=== PATIENT | female | born 1980 | race Caucasian/White ===

== ENCOUNTER → 2017-11-21 10:16 | Outpatient (CLI) | payer OTHER, SELFPAY ==
[2017-11-22 11:48] LABS: Strep Grp B PCR NEG for Grp B Strep
== END ==
PROVIDERS: Visit Provider Specialist
DX: Z34.82 Encounter for supervision of other normal pregnancy, second trimester (principal); Z3A.36 36 weeks gestation of pregnancy
CPT/HCPCS: 87653

== ENCOUNTER 2017-11-30 13:28 | Outpatient (CLI) | payer OTHER, SELFPAY ==
[2017-11-30 14:21] LABS: Appearance Urine UA CLEAR; Bilirubin Urine UA NEGATIVE (NEGATIVE); Color Urine UA YELLOW; Glucose Urine UA NEGATIVE (Normal); Ketones Urine UA NEGATIVE (NEGATIVE); Leukocyte Esterase Urine UA NEGATIVE (NEGATIVE); Nitrite Urine UA Negative (Negative); Occult Blood Urine UA NEGATIVE (Negative); Protein Urine UA NEGATIVE (Negative); Specific Gravity Urine UA <=1.005 (1.000-1.035); Urobilinogen Urine UA 0.2 E.U./dL (0.2); pH Urine UA 5.5 (4.5-8.0)
--- NOTE | 2017-11-30 17:56 | P.TNLD_ITS ---
Visit Information Visit Information Date of evaluation: 11/30/17 Reason for Evaluation: Yes non-stress test Vital Signs Vital Signs: Blood pressure 119/61, pulse of 56, Review of Systems Review of Systems Patient came in complaining of headache, not feeling well, concerned about decreased movement. Patient denies contractions or rupture membranes. Objective Labs Labs: Laboratory Results - last 24 hr 11/30/17 14:00 Urine Color Yellow Urine Appearance Clear Urine pH 5.5 Ur Specific [place] <=1.005 Urine Protein Negative Urine Glucose (UA) Negative Urine Ketones Negative Urine Occult Blood Negative Urine Nitrate Negative Urine Bilirubin Negative Urine Urobilinogen 0.2 Ur Leukocyte Esterase Negative Evaluation Evaluation Baseline heart rate: 120 Variability: Moderate (11-25) monitor accelerations: Present monitor decelerations: Absent Laboratory results: Laboratory Tests 11/30/17 14:00 Urine Color Yellow Urine Appearance Clear Urine pH 5.5 Ur Specific [place] <=1.005 Urine Protein Negative Urine Glucose (UA) Negative Urine Ketones Negative Urine Occult Blood Negative Urine Nitrate Negative Urine Bilirubin Negative Urine Urobilinogen 0.2 Ur Leukocyte Esterase Negative Diagnosis, Plan/Disposition Final Diagnosis (1) 38 weeks gestation of : Current Visit: No Status: Acute (2) Decreased movement affecting management of in third trimester: Current Visit: No Status: Acute Plan/Disposition Plan: Reactive nonstress test. Patient was reassured. Follow up at her normal scheduled OB appointment.
== END 2017-11-30 14:39 | disposition home or self-care (01) ==
LOC: OB 12-03 10:07
PROVIDERS: Visit Provider Specialist
DX: O36.8130 Decreased fetal movements, third trimester, not applicable or unspecified (principal); Z3A.38 38 weeks gestation of pregnancy
CPT/HCPCS: 59025; 81003; G0378; G0379

== ENCOUNTER 2017-12-02 10:10 | Inpatient (IN) | payer OTHER, SELFPAY ==
[2017-12-02 10:50] VITALS: BP 128/73
--- NOTE | 2017-12-02 11:16 | PM.OBHP.1 ---
OB HPI History of Present Illness Chief complaint: observation Narrative: Jovanna Lance is a 37 year old female G2 para 1 with an estimated due date of 12/16/2017 consistent with early ultrasound and LMP. She is now 38 weeks. Patient comes in complaining of leaking him fluid and contractions. Symptoms started on Sunday where she began to not feel very well. She had a headache and a little bit of nausea. She was seen and evaluated in the Center had a reactive strip was not malini blood pressures and vitals were all stable. She says she has been resting over the weekend this morning she got up and she was using the bathroom and then began to have leakage of clear fluid. This continued throughout the morning so she presented at the labor and delivery floor. She then began to have progressive contractions. On arrival she was found to have a reactive strip category 1 tracing. Malini intermittently. Her AmniSure test was positive for rupture of membranes. has been uncomplicated. Her problems include HSV 2 positive and previous due to on reassuring heart tones. Current care initiated at 9 weeks. She has had routine follow-up without any complications. She had a normal 20 week ultrasound. She had no at initial screening tests. Her labs are as follows. Blood type A positive antibody screen negative hematocrit 41.5 hemoglobin 41.1 platelet count 183 VDRL nonreactive urine culture negative hepatitis-B surface antigen negative HIV negative rubella nonimmune hep C negative. Diabetes screen 91 GBS is negative. Past medical history patient denies significant past medical history of diabetes heart disease Asthma bleeding or blood clotting problems. Past surgical history prior and knee surgery. Social history she is not a smoker or drinker during she drink intermittently before . She lives at home with her partner. Family history of diabetes and hypertension. Gynecological history no previous history of infections. Abnormal Pap smear previously without any intervention. Meds Allergies Allergy/AdvReac Type Severity Reaction Status Date / Time No Known Drug Allergies Allergy Verified 12/02/17 11:59 Exam Vital Signs (past 8 hours): . General: Alert no apparent distress. Affect is appropriate. Malini it is uncomfortable. HEENT: Neck is supple without lymphadenopathy pupils equal round and reactive. Cardio: S1-S2 regular rate and rhythm. Respiratory: Lungs clear to auscultation. Abdomen: Gravid. Extremities: Normal deep tendon reflexes trace edema. [place]: Malini every 5 min 60 sec mild heart tones: heart tones 135 category 1 Objective Labs Result Diagrams: 12/02/17 11:20 Assessment and Plan Plan: Plan: 37-year-old female who is a G2 para 1 at 38 weeks gestational age with previous history of comes in with spontaneous rupture of membrane with clear fluid and malini intermittently. Patient was scheduled here in 1 week for a . We reviewed and discussed current care plan which would be to proceed with currently because of rupture of membranes her GBS status is negative. 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 Reviewed and discussed operation. Have verbal and written informed consent was obtained after discussion of the risks of the including bleeding and infection injury to bladder or bowel during the operation. We will go ahead and proceed with starting IV fluid CBC type and screen antibiotics will be placed for on-call. Anesthesia will be contacted and as well as the OR and will proceed with . All patient's questions were answered.
[2017-12-02 11:37] LABS: Add Manual Diff / Slide Review NO; Basophils Percent Auto 0.2 % (0-2); Eosinophils Percent Auto 0.3 % (2-4); Hematocrit 36.9 % (36-46); Hemoglobin 12.8 g/dL (12.0-16.0); Lymphocytes Percent Auto 18.1 % (25-40); Mean Corpuscular HGB Conc 34.8 % (30-36); Mean Corpuscular Hemoglobin 32.2 PG (26-34); Mean Corpuscular Volume 92.7 fL (80-100); Neutrophils Absolute Auto 6600 /uL (3000-5900); Neutrophils Percent Auto 75.4 % (50-75); Platelet Count 134 X10^3/uL (150-400); Red Blood Cell Count 3.98 X10^6/uL (4.0-5.2); White Blood Cell Count 8.8 X10^3/uL (4.5-11.0)
[2017-12-02] MEDS: LACTATED RINGERS 1,000 ML 100 ML IV ×3 (11:55→21:00)
[2017-12-02] MEDS: CEFOTETAN 2 GM/50 ML PIGGYBACK IV (12:05)
--- NOTE | 2017-12-02 12:27 | SUR.OPER ---
Supine on Padded OR bed, head on pillow, safety belt at thigh, arms secured on padded arm boards at <90 degrees abduction. Bump under right buttock. Legs uncrossed with pillow under knees, gel pad to heels, tape over blanket to lower legs.
--- NOTE | 2017-12-02 12:50 | PM.OP.1 ---
Operative Notes Procedure in detail: Procedure: Lower segment transverse section Consent: Verbal and written informed consent were obtained from the patient placed on the chart. Indications: 37-year-old G2 para 138 weeks gestational age with spontaneous rupture of membrane with previous here for repeat Findings: Normal uterus normal ovaries Normal male infant Anesthesia: Spinal Surgeon: Dr. Keith Tabares Superintendent Renting Managing: Dr. Puneet Campuzano Estimated blood loss: 500 mL Drains: Valladares to gravity. IV fluids: 1800 cc LR Description of procedure: The patient was brought to the operating room after her spinal epidural, preparation, and Valladares had been performed. The abdomen was prepped and draped in tested for for analgesia. When it was found to be adequate, a lower abdominal Pfannenstiel incision was made with first with a knife and cared down to the fascia with a second knife. The fascia was incised in the midline and extended laterally with a knife. Bleeding points were clamped with hemostats and Bovie coagulated. The rectus muscles were by blunt dissection. The rectus muscles were divided in the midline and the peritoneum was grasped with hemostats and carefully entered with Kwok scissors. The incision was extended bilaterally. The bladder blade was then placed. The vesicoperitoneum was grasped with smooth pickups, entered with Metzenbaum scissors, and extended laterally. The bladder flap was created by gently blunt dissection and placed behind the bladder blade. The lower uterine segment was noted to be very thin was carefully incised with the scalpel and extended laterally with the fingers. A live infant was found to be in the vertex. The head was then easily elevated with the hand. The baby was then suctioned and cried immediately, and was handed to the waiting attendant. The placenta was delivered manually. The uterus was explored with a wet lap sponge and found to be clear membranes. The first layer of the uterine closure was with running locking #1 chromic catgut suture. The second layer with an imbricating #1 chromic catgut suture. Hemostasis was carefully checked and found to be satisfactory. The bladder flap was closed with a running 2-0 chromic catgut suture. The fallopian tubes and ovaries were inspected and to be found normal bilaterally. After sponge and needle counts were found to be correct the peritoneum was closed with 2-0 chromic catgut suture. Rectus muscles were approximated in the lower midline. The fascia was closed with a 2 running 0 Vicryl from lateral to midline. The subcutaneous tissue was approximated with interrupted 2.0 plain gut. Bleeding points were Bovie and coagulated. The subcutaneous tissue was approximated with 2.0 plain gut suture. The skin was closed with 1-0 running subcuticular stitch. Urinary output was adequate and normal patient left to the recovery room in good condition.
[2017-12-02 12:56] VITALS: BP 99/56; PULSE 56; RESP 12; TEMP 35.9; O2SAT 100
[2017-12-02 13:01] VITALS: BP 102/53; PULSE 57; RESP 13; O2SAT 100
[2017-12-02 13:06] VITALS: BP 104/56; PULSE 57; RESP 13; O2SAT 100
[2017-12-02 13:11] VITALS: BP 100/53; PULSE 52; TEMP 35.7
--- NOTE | 2017-12-02 13:15 | SUR.PHASEI ---
Report called to mike Zamudio
--- NOTE | 2017-12-02 13:16 | SUR.OPER ---
FHR 152 TOB at 12:21 p.m. alive male Cord bloods x 2 and placenta are given to OB nurse
--- NOTE | 2017-12-02 13:49 | SUR.PHASEI ---
Epidural orders discontinued by transfer routine. Lizz notified. Dr. Campuzano notified, ok to restart anesthesia's epidural orders per Dr. Campuzano. Marsha in pharmacy notified.
--- NOTE | 2017-12-02 13:54 | SUR.PHASEI ---
Verified Dr. Wetzel ordered Duramorph order set.
[2017-12-02] MEDS: LACTATED RINGERS 1,000 ML 125 ML IV (14:15)
[2017-12-02] MEDS: ONDANSETRON 4 MG/2 ML INJ IV (15:41)
[2017-12-02] MEDS: KETOROLAC 30 MG/ML VIAL IV (18:31)
[2017-12-03] MEDS: KETOROLAC 30 MG/ML VIAL IV ×2 (00:26→06:21)
[2017-12-03] MEDS: LACTATED RINGERS 1,000 ML 125 ML IV (04:38)
--- NOTE | 2017-12-03 08:14 | P.PN_ITS ---
Subjective Date Patient Seen: 12/03/17 Time Patient Seen: 08:11 Interval history: Doing well today. Had some nausea yesterday. Has not really been out of bed yet. Working on breast-feeding. Diets been okay. Valladares catheter in SCDs is still on. Pain is well controlled. Is vaginal bleeding has been expected. No significant incisional bleeding. She is afebrile and vital signs are stable. Exam Vital Signs (past 8 hours): Pulse Oximetry 100 Oxygen Delivery Method Room Air Narrative Exam Narrative: General: Alert no apparent distress. Affect is appropriate. [place] it is uncomfortable. HEENT: Neck is supple without lymphadenopathy pupils equal round and reactive. Cardio: S1-S2 regular rate and rhythm. Respiratory: Lungs clear to auscultation. Abdomen: Uterus firm. Incision clean dry and intact. Extremities: Normal deep tendon reflexes trace edema. Objective Labs Result Diagrams: 12/02/17 11:20 Labs: Laboratory Results - last 24 hr 12/02/17 12/02/17 11:20 11:20 WBC 8.8 RBC 3.98 L Hgb 12.8 Hct 36.9 MCV 92.7 MCH 32.2 MCHC 34.8 RDW 13.0 Plt Count 134 L Neut % (Auto) 75.4 H Lymph % (Auto) 18.1 L [place] % (Auto) 6.0 Eos % (Auto) 0.3 L Baso % (Auto) 0.2 Neut # (Auto) 6600 H Blood Type A Positive Antibody Screen Negative Assessment & Plan Plan: Plan: Doing well last night. Nausea is now improved. Starting on breakfast. If she tolerates that well will remove her IV SCDs and Valladares catheter. Transition her over to oral pain medication a large a ambulate back and forth to the bathroom.
[2017-12-03] MEDS: OXYCODONE/ACETAMINOPHEN 5/325 TABLET 2 TAB PO ×4 (10:25→22:15)
[2017-12-03] MEDS: IBUPROFEN 600 MG TABLET PO ×2 (12:45→18:07)
[2017-12-03] MEDS: DOCUSATE 250 MG CAPSULE PO (12:46)
[2017-12-04] MEDS: OXYCODONE/ACETAMINOPHEN 5/325 TABLET 2 TAB PO ×2 (05:27→09:07)
[2017-12-04] MEDS: IBUPROFEN 600 MG TABLET PO ×3 (05:28→17:43)
--- NOTE | 2017-12-04 07:52 | PM.DS.1 ---
History of Present Illness Chief complaint: observation Discharge Providers Date of admission: 12/02/17 10:51 Consults: 12/02/17 13:18 Consult to Email Campaign Manager Routine Comment: Discharge provider: Keith Tabares MD Summary Discharge Diagnosis: 37-year-old G2 now para 2 status post due to rupture membranes previous history of . Estimated due date 38 weeks. Routine care Hospital Course: Patient was admitted to labor and delivery floor with spontaneous rupture of membranes at 38 weeks. Patient previously has had a . And anticipated repeat section. Patient had an uncomplicated delivery of a healthy male infant. Postoperatively day 1. Patient was doing well pain was well controlled breast-feeding was going would help Valladares catheter IV fluids SCDs removed. Postoperative day 2. Patient was tolerating diet and ambulated pain was well controlled with oral medication hemoglobin adequate with stable breast-feeding was well and patient desiring to go home Exam Vital Signs (past 8 hours): Pulse Oximetry 100 Oxygen Delivery Method Room Air Narrative Exam Narrative: General: Alert no apparent distress. Affect is appropriate. [place] it is uncomfortable. HEENT: Neck is supple without lymphadenopathy pupils equal round and reactive. Cardio: S1-S2 regular rate and rhythm. Respiratory: Lungs clear to auscultation. Abdomen: Uterus firm. Incision clean dry and intact. Extremities: Normal deep tendon reflexes trace edema. Objective Labs Result Diagrams: 12/02/17 11:20 Discharge Plan Discharge Plan Patient Disposition: Home, Self-Care Discharge Med Rec/Prescriptions Prescriptions: New oxycodone-acetaminophen 5-325 mg Tablet 2 tab PO TPN/PPN PRN (Reason: Pain, Severe) Qty: 30 RF: 0 ibuprofen 600 mg Tablet 600 mg PO Q6HR PRN (Reason: As Needed For Fever/Mild Pain) Qty: 30 RF: 0 docusate sodium 250 mg Capsule 250 mg PO DAILY Qty: 30 RF: 0 Discharge Data Attending Provider: Keith Tabares Admit Date/Time: 12/02/17 10:51
--- NOTE | 2017-12-04 07:55 | P.DS_ITS ---
History of Present Illness Chief complaint: observation Discharge Providers Date of admission: 12/02/17 10:51 Consults: 12/02/17 13:18 Consult to Youth Care Professional Routine Comment: Discharge provider: Keith Tabares MD Summary Discharge Diagnosis: 37-year-old G2 now para 2 status post due to rupture membranes previous history of . Estimated due date 38 weeks. Routine care Hospital Course: Patient was admitted to labor and delivery floor with spontaneous rupture of membranes at 38 weeks. Patient previously has had a C- section. And anticipated repeat section. Patient had an uncomplicated delivery of a healthy male infant. Postoperatively day 1. Patient was doing well pain was well controlled breast- feeding was going would help Valladares catheter IV fluids SCDs removed. Postoperative day 2. Patient was tolerating diet and ambulated pain was well controlled with oral medication hemoglobin adequate with stable breast-feeding was well and patient desiring to go home Exam Vital Signs (past 8 hours): Pulse Oximetry 100 Oxygen Delivery Method Room Air Narrative Exam Narrative: General: Alert no apparent distress. Affect is appropriate. [place] it is uncomfortable. HEENT: Neck is supple without lymphadenopathy pupils equal round and reactive. Cardio: S1-S2 regular rate and rhythm. Respiratory: Lungs clear to auscultation. Abdomen: Uterus firm. Incision clean dry and intact. Extremities: Normal deep tendon reflexes trace edema. Objective Labs Result Diagrams: 12/02/17 11:20 Discharge Plan Discharge Plan Patient Disposition: Home, Self-Care Discharge Med Rec/Prescriptions Prescriptions: New oxycodone-acetaminophen 5-325 mg Tablet 2 tab PO TPN/PPN PRN (Reason: Pain, Severe) Qty: 30 RF: 0 ibuprofen 600 mg Tablet 600 mg PO Q6HR PRN (Reason: As Needed For Fever/Mild Pain) Qty: 30 RF: 0 docusate sodium 250 mg Capsule 250 mg PO DAILY Qty: 30 RF: 0 Discharge Data Attending Provider: Keith Tabares Admit Date/Time: 12/02/17 10:51
[2017-12-04] MEDS: DOCUSATE 250 MG CAPSULE PO (09:07)
[2017-12-04] MEDS: OXYCODONE/ACETAMINOPHEN 5/325 TABLET 1 TAB PO (15:30)
[2017-12-04 16:11] VITALS: BP 108/67; PULSE 45; RESP 16; TEMP 36.7
== END 2017-12-04 18:33 | disposition home or self-care (01) | DRG 766 ==
PROVIDERS: Specialist; Admitting Provider Family Medicine; Visit Provider Family Medicine
PROC: 10D00Z1 Extraction of Products of Conception, Low, Open Approach (ICD-10-PCS; CPT 59514; principal; 2017-12-02 11:30)
DX: O75.82 Onset (spontaneous) of labor after 37 completed weeks of gestation but before 39 completed weeks gestation, with delivery by (planned) cesarean section (principal); Z37.0 Single live birth; Z3A.38 38 weeks gestation of pregnancy
CPT/HCPCS: 59050; 59510; 59514; 85025; 86850; 86900; 86901; G0378; G0379; J1885; J2250; J2274; J2405; J2590; J3010